=== PATIENT | female | born 1935 | race Caucasian/White ===

== ENCOUNTER 2018-01-12 09:39 | Outpatient (CLI) | payer MEDICARE ==
[2018-01-12] MEDS ORDERED: IOPAMIDOL-300 50 ML VIAL ONE (10:12)
[2018-01-12] MEDS ORDERED: IOPAMIDOL-300 100 ML VIAL ONE (10:12)
[2018-01-12] MEDS ORDERED: IOPAMIDOL-300 50 ML VIAL PO ONE (11:27)
[2018-01-12] MEDS ORDERED: IOPAMIDOL-300 100 ML VIAL IVP ONE (11:27)
--- NOTE | 2018-01-12 13:39 | CT Report ---
CT ABDOMEN AND PELVIS WITH CONTRAST: 01/12/2018 CLINICAL INDICATION: Abdominal pain. COMPARISON: 06/03/2015. TECHNIQUE: Axial CT images of the abdomen and pelvis were obtained with 100 mL Isovue 300 intravenously as well as oral contrast. FINDINGS: Limited evaluation of the lung bases demonstrates mild atelectasis. ABDOMEN: Allowing for the phase of contrast enhancement, the liver, left kidney and adrenal glands appear unremarkable. 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 The right kidney again demonstrates an extrarenal pelvis. No bowel dilatation, free gas, or free fluid is present. No abdominal adenopathy is present. PELVIS: The pelvic organs appear unremarkable. No pelvic adenopathy or free fluid is present. Osseous structures demonstrate degenerative changes. IMPRESSION: POSTOPERATIVE CHANGES. NO EVIDENT ETIOLOGY FOR PATIENT'S PAIN. NO EVIDENCE OF BOWEL OBSTRUCTION. CT DOSE REDUCTION STATEMENT In accordance with CT protocol optimization, one or more of the following dose reduction techniques were utilized for this exam: automated exposure control, adjustment of mA and/or KV based on patient size, or use of iterative reconstructive technique. TD: 01/12/2018 13:31
== END 2018-01-12 09:40 | disposition home or self-care (01) ==
LOC: DI 09:39
PROVIDERS: ATTEND Family Medicine
DX: R10.9 Unspecified abdominal pain (principal)
CPT/HCPCS: 74177; Q9967

== ENCOUNTER 2018-01-16 10:34 | Outpatient (CLI) | payer MEDICARE | END 2018-01-16 10:35 | disposition home or self-care (01) | LOC: LAB.F 10:34 | PROVIDERS: ATTEND Emergency Medicine | DX: I48.91 Unspecified atrial fibrillation (principal) | CPT/HCPCS: 85610 ==

== ENCOUNTER 2018-01-20 09:39 | Outpatient (CLI) | payer MEDICARE | END 2018-01-20 09:40 | disposition home or self-care (01) | LOC: LAB.F 09:39 | PROVIDERS: ATTEND Emergency Medicine | DX: I48.91 Unspecified atrial fibrillation (principal) | CPT/HCPCS: 85610 ==

== ENCOUNTER 2018-01-26 09:26 | Outpatient (CLI) | payer MEDICARE | END 2018-01-26 09:27 | disposition home or self-care (01) | LOC: LAB.F 09:26 | PROVIDERS: ATTEND Emergency Medicine | DX: I48.91 Unspecified atrial fibrillation (principal) | CPT/HCPCS: 85610 ==

== ENCOUNTER 2018-01-30 08:15 | Outpatient (CLI) | payer MEDICARE | END 2018-01-30 08:16 | disposition home or self-care (01) | LOC: LAB.F 08:15 | PROVIDERS: ATTEND Emergency Medicine | DX: I48.91 Unspecified atrial fibrillation (principal) | CPT/HCPCS: 85610 ==

== ENCOUNTER 2018-02-02 09:27 | Outpatient (CLI) | payer MEDICARE | END 2018-02-02 09:28 | disposition home or self-care (01) | LOC: LAB.F 09:27 | PROVIDERS: ATTEND Emergency Medicine | DX: I48.91 Unspecified atrial fibrillation (principal) | CPT/HCPCS: 85610 ==

== ENCOUNTER 2018-02-06 08:59 | Outpatient (CLI) | END 2018-02-06 09:00 | disposition home or self-care (01) ==

== ENCOUNTER 2018-02-09 07:57 | Day surgery (SDC) | payer MEDICARE ==
[~2018-02-09 07:57] MED LIST: BRIMONIDINE 0.2% OPHTH DROPS 5 ML ONE; BSS/LIDOCAINE/EPINEPHRINE 1 ML SYRINGE ONE; CYCLOPENTOLATE 1% OPHTH DROPS 2 ML ONE; EPINEPHrine 1 MG/ML AMP ONE; KETOROLAC 0.45% OPHTH DROPS ONE; PHENYLEPHRINE 2.5% OPHTH 2 ML DROPS ONE; PROPARACAINE 0.5% OPHTH DROPS 15 ML ONE; TIMOLOL 0.5% OPHTH DROPS ONE; TRIAMCIN/MOXIFLOX OPHTHALMIC 0.6 ML VIAL IO ONE; VANCOMYCIN OPHTHALMI 8MG/0.8ML 8 MG/0.8 ML SYRINGE IO ONE
[2018-02-09] MEDS: PROPARACAINE 0.5% OPHTH DROPS 15 ML LEFTEYE ONE ×2 (08:15→08:38)
[2018-02-09] MEDS: CYCLOPENTOLATE 1% OPHTH DROPS 2 ML LEFTEYE ONE (08:15)
[2018-02-09] MEDS: PHENYLEPHRINE 2.5% OPHTH 2 ML DROPS LEFTEYE ONE (08:15)
[2018-02-09] MEDS: KETOROLAC 0.45% OPHTH DROPS LEFTEYE ONE (08:15)
[2018-02-09] MEDS: LACTATED RINGERS 500 ML IV ONE (08:19)
[2018-02-09] MEDS: BRIMONIDINE 0.2% OPHTH DROPS 5 ML OPTH ONE (08:46)
[2018-02-09] MEDS: CHONDR SULF/HYALURONATE SYRINGE IO ONE (08:46)
[2018-02-09] MEDS: TIMOLOL 0.5% OPHTH DROPS OPTH ONE (08:46)
[2018-02-09] MEDS ORDERED: MIDAZOLAM 2 MG/2 ML VIAL IVP ONE (08:46)
[2018-02-09] MEDS: EPINEPHrine 1 MG/ML AMP IVP ONE (08:46)
[2018-02-09] MEDS: TRIAMCIN/MOXIFLOX/VANCO 1 ML VIAL IO ONE (08:47)
[2018-02-09] MEDS: BSS/LIDOCAINE/EPINEPHRINE 1 ML SYRINGE IO ONE ×2 (08:47)
[2018-02-09 08:58] VITALS: BP 140/80
--- NOTE | 2018-02-09 11:18 | OPERATIVE REPORT ---
DATE OF SERVICE: 02/09/2018 Physician: Shubham Rodriguez MD PREOPERATIVE DIAGNOSIS: Visually significant cataract, left eye. This was her 1st cataract surgery. POSTOPERATIVE DIAGNOSIS: Visually significant cataract, left eye. This was her 1st cataract surgery. NAME OF PROCEDURE: Phacoemulsification with posterior chamber intraocular lens implant, left eye. SURGEON: Shubham Rodriguez M.D. ANESTHESIA: Monitored anesthesia care. COMPLICATIONS: None. OPERATIVE INDICATIONS: This is an 82-year-old woman with progressive vision loss in the left eye due to 2+ nuclear sclerotic, 2+ cortical and vacuolar cataract. Best corrected visual acuity was 20/40 with glare to 20/160 in the left eye. Indications for surgery were overall decrease in vision, difficulty reading, difficulty driving in low light or at night, difficulty driving at night because of head lights from other vehicles and/or street lights, and difficulty with glare or bright lights in any situation. She was consented at length concerning risks and benefits of cataract surgery, after which she expressed a desire to proceed with surgery. OPERATIVE PROCEDURE: The patient was taken into OR #3 and placed under monitored anesthesia care. A surgical timeout was conducted confirming correct patient, correct procedure, and correct surgical site. She was given topical anesthesia and prepped and draped in usual sterile fashion. The eye was entered at the 6 and 3 o'clock positions. Intracameral Shugarcaine was injected into the anterior chamber, followed by Viscoat. A continuous-tear curvilinear capsulorrhexis was performed. The nucleus was hydrodissected and phacoemulsified. The cortex was evacuated using automated infusion and aspiration. Provisc was injected in the capsular bag, and a 19.0 diopter intraocular lens inserted in the bag. I and A was used to evacuate the viscoelastic materials. Approximately 0.7 mL of a mixture of triamcinolone, moxifloxacin, and vancomycin was injected subconjunctivally in the superior quadrant for infection and inflammation prophylaxis. The eye was inflated to physiologic pressure using balanced salt solution and found to be watertight. The patient was taken from the operating room in good condition and given postop instruction. TD: 02/09/2018 09:11
== END 2018-02-09 07:58 | disposition home or self-care (01) ==
LOC: SDS 07:57
PROVIDERS: ATTEND Ophthalmology
PROC: 08RK3JZ Replacement of Left Lens with Synthetic Substitute, Percutaneous Approach (ICD-10-PCS; principal; 2018-02-09 09:00)
DX: H25.812 Combined forms of age-related cataract, left eye (principal); I71.4 Abdominal aortic aneurysm, without rupture; I48.91 Unspecified atrial fibrillation; I73.9 Peripheral vascular disease, unspecified; Z85.07 Personal history of malignant neoplasm of pancreas; Z79.01 Long term (current) use of anticoagulants; Z86.73 Personal history of transient ischemic attack (TIA), and cerebral infarction without residual deficits
CPT/HCPCS: 66984; A9270; J3490; V2632

== ENCOUNTER 2018-02-13 09:13 | Outpatient (CLI) | payer MEDICARE | END 2018-02-13 09:14 | disposition home or self-care (01) | LOC: LAB.F 09:13 | PROVIDERS: ATTEND Emergency Medicine | DX: I48.91 Unspecified atrial fibrillation (principal) | CPT/HCPCS: 85610 ==

== ENCOUNTER 2018-02-20 09:27 | Outpatient (CLI) | payer MEDICARE | END 2018-02-20 09:28 | disposition home or self-care (01) | LOC: LAB.F 09:27 | PROVIDERS: ATTEND Emergency Medicine | DX: I48.91 Unspecified atrial fibrillation (principal) | CPT/HCPCS: 85610 ==

== ENCOUNTER 2018-02-27 11:35 | Outpatient (CLI) | payer MEDICARE | END 2018-02-27 11:36 | disposition home or self-care (01) | LOC: LAB.F 11:35 | PROVIDERS: ATTEND Emergency Medicine | DX: I48.91 Unspecified atrial fibrillation (principal) | CPT/HCPCS: 85610 ==

== ENCOUNTER 2018-03-13 09:43 | Outpatient (CLI) | payer MEDICARE | END 2018-03-13 09:44 | disposition home or self-care (01) | LOC: LAB.F 09:43 | PROVIDERS: ATTEND Emergency Medicine | DX: I48.91 Unspecified atrial fibrillation (principal) | CPT/HCPCS: 85610 ==

== ENCOUNTER 2018-03-27 09:57 | Outpatient (CLI) | payer MEDICARE | END 2018-03-27 09:58 | disposition home or self-care (01) | LOC: LAB.F 09:57 | PROVIDERS: ATTEND Emergency Medicine | DX: I48.91 Unspecified atrial fibrillation (principal) | CPT/HCPCS: 85610 ==

== ENCOUNTER 2018-04-03 10:11 | Outpatient (CLI) | payer MEDICARE | END 2018-04-03 10:12 | disposition home or self-care (01) | LOC: LAB.F 10:11 | PROVIDERS: ATTEND Emergency Medicine | DX: I48.91 Unspecified atrial fibrillation (principal) | CPT/HCPCS: 85610 ==

== ENCOUNTER 2018-04-19 11:30 | Outpatient (CLI) | payer MEDICARE | END 2018-04-19 11:31 | disposition home or self-care (01) | LOC: LAB.F 11:30 | PROVIDERS: ATTEND Emergency Medicine | DX: I48.91 Unspecified atrial fibrillation (principal) | CPT/HCPCS: 85610 ==

== ENCOUNTER 2018-04-24 14:14 | Outpatient (CLI) | payer MEDICARE | END 2018-04-24 14:15 | disposition home or self-care (01) | LOC: LAB.F 14:14 | PROVIDERS: ATTEND Emergency Medicine | DX: I48.91 Unspecified atrial fibrillation (principal) | CPT/HCPCS: 85610 ==

== ENCOUNTER 2018-05-03 11:47 | Outpatient (CLI) | payer MEDICARE | END 2018-05-03 11:48 | disposition home or self-care (01) | LOC: LAB.F 11:47 | PROVIDERS: ATTEND Emergency Medicine | DX: I48.91 Unspecified atrial fibrillation (principal) | CPT/HCPCS: 85610 ==

== ENCOUNTER 2018-05-11 10:51 | Outpatient (CLI) | payer MEDICARE | END 2018-05-11 10:52 | disposition home or self-care (01) | LOC: LAB.F 10:51 | PROVIDERS: ATTEND Emergency Medicine | DX: I48.91 Unspecified atrial fibrillation (principal) | CPT/HCPCS: 85610 ==

== ENCOUNTER 2018-05-18 10:35 | Outpatient (CLI) | payer MEDICARE | END 2018-05-18 10:36 | disposition home or self-care (01) | LOC: LAB.F 10:35 | PROVIDERS: ATTEND Emergency Medicine | DX: I48.91 Unspecified atrial fibrillation (principal) | CPT/HCPCS: 85610 ==

== ENCOUNTER 2018-06-01 14:38 | Outpatient (CLI) | payer MEDICARE | END 2018-06-01 14:39 | disposition home or self-care (01) | LOC: LAB.F 14:38 | PROVIDERS: ATTEND Emergency Medicine | DX: I48.91 Unspecified atrial fibrillation (principal) | CPT/HCPCS: 85610 ==

== ENCOUNTER 2018-06-15 09:34 | Outpatient (CLI) | payer MEDICARE | END 2018-06-15 09:35 | disposition home or self-care (01) | LOC: LAB.F 09:34 | PROVIDERS: ATTEND Emergency Medicine | DX: I48.91 Unspecified atrial fibrillation (principal) | CPT/HCPCS: 85610 ==

== ENCOUNTER 2018-07-10 08:00 | Outpatient (CLI) | payer MEDICARE | END 2018-07-10 08:01 | disposition home or self-care (01) | LOC: LAB.F 08:00 | PROVIDERS: ATTEND Emergency Medicine | DX: I48.91 Unspecified atrial fibrillation (principal) | CPT/HCPCS: 85610 ==

== ENCOUNTER 2018-07-13 07:56 | Day surgery (SDC) | payer MEDICARE ==
[~2018-07-13 07:56] MED LIST changes: -CYCLOPENTOLATE 1% OPHTH DROPS 2 ML ONE; -KETOROLAC 0.45% OPHTH DROPS ONE; -PHENYLEPHRINE 2.5% OPHTH 2 ML DROPS ONE; -PROPARACAINE 0.5% OPHTH DROPS 15 ML ONE
[2018-07-13] MEDS ORDERED: KETOROLAC 0.45% OPHTH DROPS ONE (08:23)
[2018-07-13] MEDS ORDERED: CYCLOPENTOLATE 1% OPHTH DROPS 2 ML ONE (08:24)
[2018-07-13] MEDS ORDERED: PHENYLEPHRINE 2.5% OPHTH 2 ML DROPS ONE (08:24)
[2018-07-13] MEDS ORDERED: PROPARACAINE 0.5% OPHTH DROPS 15 ML ONE (08:24)
--- NOTE | 2018-07-13 08:28 | ANESTHESIA ---
Pre-Anesthesia VS, & Labs - Diagnosis R senile combined cataract - Procedure R extraction cataract with IOL Vital Signs: Last Vital Signs Temp 36.6 C 07/13/18 08:25 Pulse 85 07/13/18 08:25 Resp 18 07/13/18 08:25 BP 137/87 H 07/13/18 08:25 Pulse Ox 96 07/13/18 08:25 Height 5 ft 3 in Body Mass Index 18.9 - NPO >8 hours - Is Patient ?: No Home Medications and Allergies Home Medications: Ambulatory Orders Atorvastatin Calcium 20 mg PO DAILY 07/12/18 Atenolol 50 mg PO BID 12/20/12 Lactobacillus Rhamnosus GG [Probiotic] 1 each PO DAILY 12/20/12 Lisinopril [Prinivil] 20 mg PO DAILY 12/20/12 Calcium Carb/Vitamin D3/Vit K1 [Calcium + D Soft Chewable Tab] 600 mg ORAL DAILY 04/29/14 Multivitamin [Multiple Vitamins] 1 each PO DAILY 02/08/18 Warfarin Sodium [Coumadin] 3 mg PO DAILY 02/08/18 Atorvastatin Calcium 20 mg PO DAILY 07/12/18 Allergies/Adverse Reactions: Allergies Allergy/AdvReac Type Severity Reaction Status Date / Time No Known Drug Allergies Allergy Unverified 02/08/18 13:42 Anes History & Medical History - Anesthetic History Anesthesia Complications: reports: No previous complications Family history of Anesthesia Complications: Denies Family history of Malignant Hyperthermia: Denies - Medical History Cardiovascular: reports: Atrial fibrillation, Arrhythmia Pulmonary: reports: None Gastrointestinal: reports: Other Urinary: reports: None Musculoskeletal: reports: Osteoarthritis Endocrine/Autoimmune: reports: None Skin: reports: None Smoking Status: Never smoker - Surgical History General: Cholecystectomy, Splenectomy Cardiothoracic: Pacemaker Exam General: Alert, Oriented x3, Cooperative Dental: WNL Mouth Openin Fingerbreadth Neck Mobility: Normal Mallampati classification: II Thyromental Distance: 4-6 cm Respiratory: Lungs clear, Normal breath sounds, No respiratory distress Cardiovascular: Regular rate Neurological: Normal speech Mental/Cognitive Status: Alert/Oriented X3 Cognitive Status: Within normal limits Plan Anesthesia Type: MAC Consent for Procedure(s) Verified and Reviewed: Yes Code Status: Attempt Resuscitation ASA classification: 3-Severe systemic disease Is this case an emergency?: No
[2018-07-13] MEDS ORDERED: PHENYLEPHRINE 2.5% OPHTH 2 ML DROPS RIGHTEYE ONE (08:30)
[2018-07-13] MEDS ORDERED: PROPARACAINE 0.5% OPHTH DROPS 15 ML RIGHTEYE ONE ×2 (08:30→09:21)
[2018-07-13] MEDS ORDERED: CYCLOPENTOLATE 1% OPHTH DROPS 2 ML RIGHTEYE ONE (08:30)
[2018-07-13] MEDS ORDERED: KETOROLAC 0.45% OPHTH DROPS RIGHTEYE ONE (08:30)
[2018-07-13] MEDS ORDERED: LACTATED RINGERS 500 ML IV ONE (08:43)
[2018-07-13] MEDS ORDERED: CHONDR SULF/HYALURONATE SYRINGE IO ONE (09:20)
[2018-07-13] MEDS ORDERED: PROPOFOL 200 MG/20 ML VIAL IVP ONE (09:20)
[2018-07-13] MEDS ORDERED: MIDAZOLAM 2 MG/2 ML VIAL IVP ONE (09:20)
[2018-07-13] MEDS ORDERED: BRIMONIDINE 0.2% OPHTH DROPS 5 ML OPTH ONE (09:20)
[2018-07-13] MEDS ORDERED: EPINEPHrine 1 MG/ML AMP IVP ONE (09:20)
[2018-07-13] MEDS ORDERED: BSS/LIDOCAINE/EPINEPHRINE 1 ML SYRINGE IO ONE ×2 (09:21)
[2018-07-13] MEDS ORDERED: TRIAMCIN/MOXIFLOX OPHTHALMIC 0.6 ML VIAL IO ONE ×2 (09:21)
[2018-07-13] MEDS ORDERED: TIMOLOL 0.5% OPHTH DROPS OPTH ONE (09:21)
[2018-07-13 10:35] VITALS: BP 123/87
--- NOTE | 2018-07-13 10:46 | OPERATIVE REPORT ---
DATE OF SERVICE: 07/13/2018 Physician: Shubham Rodriguez MD PREOPERATIVE DIAGNOSIS: Visually significant cataract, right eye. Cataract surgery was performed on the left eye on 02/09/2018. POSTOPERATIVE DIAGNOSIS: Visually significant cataract, right eye. PROCEDURE: Phacoemulsification with posterior chamber intraocular lens implant, right eye. SURGEON: Dr. Shubham Rodriguez. ANESTHESIA: Monitored anesthesia care. COMPLICATIONS: None. OPERATIVE INDICATIONS: This is an 82-year-old woman with progressive vision loss in the right eye du e to 2-3+ nuclear sclerotic, 1+ cortical and trace posterior subcapsular cataract. Best corrected vi sual acuity was 20/40 with glare to 20/80 in the right eye. Indications for surgery are overall decrease in vision, difficulty seeing words on a computer screen, difficulty reading, difficulty seeing words, closed captions or game scores on TV, difficulty seeing street signs, difficulty driving in low light or at night, difficulty driving at night because of he adlights from other vehicles and/or street lights, and difficulty with glare or bright lights in any situation. She was consented at length concerning the risks and benefits of cataract surgery, after which she expressed a desire to proceed with surgery. OPERATIVE PROCEDURE: Patient was taken into OR #3 and placed under monitored anesthesia care. A lotus gical timeout was conducted confirming correct patient, correct procedure, and correct surgical site. She was given topical anesthesia, then prepped and draped in the usual sterile fashion. The eye was entered at the 12 and 9 o'clock positions. Intracameral Shugarcaine was injected into th e anterior chamber, followed by Viscoat. A continuous-tear curvilinear capsulorrhexis was performed. The nucleus was hydrodissected and phacoemulsified. The cortex was evacuated using automated infus ion and aspiration. Provisc was injected in the capsular bag, and a 21.0 diopter intraocular lens in serted in the bag. Approximately 0.8 mL of a mixture of triamcinolone, moxifloxacin, and vancomycin was injected subconjunctivally in the superior quadrant for infection and inflammation prophylaxis. I and A was used to evacuate the viscoelastic materials. The eye was inflated to physiologic pressur e using a balanced salt solution and found to be watertight. Patient was taken from the operating ro om in good condition and given postop instructions. TD: 07/13/2018 09:48
== END 2018-07-13 07:57 | disposition home or self-care (01) ==
LOC: SDS 07:56
PROVIDERS: ATTEND Ophthalmology
PROC: 08RJ3JZ Replacement of Right Lens with Synthetic Substitute, Percutaneous Approach (ICD-10-PCS; principal; 2018-07-13 09:00)
DX: H25.811 Combined forms of age-related cataract, right eye (principal); I10 Essential (primary) hypertension; I48.91 Unspecified atrial fibrillation; Z95.0 Presence of cardiac pacemaker; Z79.01 Long term (current) use of anticoagulants
CPT/HCPCS: 66984; A9270; J3490; V2632

== ENCOUNTER 2018-08-09 14:53 | Outpatient (CLI) | payer MEDICARE | END 2018-08-09 14:54 | disposition home or self-care (01) | LOC: LAB.F 14:53 | PROVIDERS: ATTEND Emergency Medicine | DX: I48.91 Unspecified atrial fibrillation (principal) | CPT/HCPCS: 85610 ==

== ENCOUNTER 2018-08-16 10:36 | Outpatient (CLI) | payer MEDICARE | END 2018-08-16 10:37 | disposition home or self-care (01) | LOC: LAB.F 10:36 | PROVIDERS: ATTEND Emergency Medicine | DX: I48.91 Unspecified atrial fibrillation (principal) | CPT/HCPCS: 85610 ==

== ENCOUNTER 2018-08-23 13:35 | Outpatient (CLI) | payer MEDICARE | END 2018-08-23 13:36 | disposition home or self-care (01) | LOC: LAB.F 13:35 | PROVIDERS: ATTEND Emergency Medicine | DX: I48.91 Unspecified atrial fibrillation (principal) | CPT/HCPCS: 85610 ==

== ENCOUNTER 2018-08-30 13:51 | Outpatient (CLI) | payer MEDICARE | END 2018-08-30 13:52 | disposition home or self-care (01) | LOC: LAB.F 13:51 | PROVIDERS: ATTEND Emergency Medicine | DX: I48.91 Unspecified atrial fibrillation (principal) | CPT/HCPCS: 85610 ==

== ENCOUNTER 2018-09-15 09:24 | Outpatient (CLI) | payer MEDICARE | END 2018-09-15 09:25 | disposition home or self-care (01) | LOC: LAB.F 09:24 | PROVIDERS: ATTEND Emergency Medicine | DX: I48.91 Unspecified atrial fibrillation (principal) | CPT/HCPCS: 85610 ==

== ENCOUNTER 2018-09-26 11:34 | Outpatient (CLI) | payer MEDICARE | END 2018-09-26 11:35 | disposition home or self-care (01) | LOC: LAB.F 11:34 | PROVIDERS: ATTEND Emergency Medicine | DX: I48.91 Unspecified atrial fibrillation (principal) | CPT/HCPCS: 85610 ==

== ENCOUNTER 2018-10-04 14:28 | Outpatient (CLI) | payer MEDICARE | END 2018-10-04 14:29 | disposition home or self-care (01) | LOC: LAB.F 14:28 | PROVIDERS: ATTEND Emergency Medicine | DX: I48.91 Unspecified atrial fibrillation (principal) | CPT/HCPCS: 85610 ==

== ENCOUNTER 2018-10-18 12:52 | Outpatient (CLI) | payer MEDICARE | END 2018-10-18 12:53 | disposition home or self-care (01) | LOC: LAB.F 12:52 | PROVIDERS: ATTEND Emergency Medicine | DX: I48.91 Unspecified atrial fibrillation (principal) | CPT/HCPCS: 85610 ==

== ENCOUNTER 2018-11-03 11:07 | Outpatient (CLI) | payer MEDICARE | END 2018-11-03 11:08 | disposition home or self-care (01) | LOC: LAB.F 11:07 | PROVIDERS: ATTEND Emergency Medicine | DX: I48.91 Unspecified atrial fibrillation (principal) | CPT/HCPCS: 85610 ==

== ENCOUNTER 2018-11-13 14:17 | Outpatient (CLI) | payer MEDICARE | END 2018-11-13 14:18 | disposition home or self-care (01) | LOC: LAB.F 14:17 | PROVIDERS: ATTEND Emergency Medicine | DX: I48.91 Unspecified atrial fibrillation (principal) | CPT/HCPCS: 85610 ==

== ENCOUNTER 2018-11-28 13:31 | Outpatient (CLI) | payer MEDICARE | END 2018-11-28 13:32 | disposition home or self-care (01) | LOC: LAB.F 13:31 | PROVIDERS: ATTEND Emergency Medicine | DX: I48.91 Unspecified atrial fibrillation (principal) | CPT/HCPCS: 85610 ==

== ENCOUNTER 2018-12-19 14:36 | Outpatient (CLI) | payer MEDICARE | END 2018-12-19 14:37 | disposition home or self-care (01) | LOC: LAB.F 14:36 | PROVIDERS: ATTEND Emergency Medicine | DX: I48.91 Unspecified atrial fibrillation (principal) | CPT/HCPCS: 85610 ==

== ENCOUNTER 2019-01-02 11:18 | Outpatient (CLI) | payer MEDICARE | END 2019-01-02 11:19 | disposition home or self-care (01) | LOC: LAB.F 11:18 | PROVIDERS: ATTEND Emergency Medicine | DX: I48.91 Unspecified atrial fibrillation (principal) | CPT/HCPCS: 85610 ==

== ENCOUNTER 2019-01-09 15:18 | Outpatient (CLI) | payer MEDICARE ==
[2019-01-09 18:00] LABS: BASOPHILS # (AUTO) 0.1 10^3/uL (0.0-0.1); BASOPHILS % (AUTO) 1.2 %; EOSINOPHILS # (AUTO) 0.1 10^3/uL (0.0-0.7); EOSINOPHILS % (AUTO) 1.6 %; LYMPHOCYTES # (AUTO) 1.1 10^3/uL (1.5-3.5); LYMPHOCYTES % (AUTO) 15.3 %; MEAN CORPUSCULAR HGB CONC 32.5 g/dL (32.0-36.0); MEAN CORPUSCULAR VOLUME 92.3 fL (81.0-99.0); MEAN PLATELET VOLUME 8.6 fL (7.9-10.8); MONOCYTES # (AUTO) 0.8 10^3/uL (0.0-1.0); MONOCYTES % (AUTO) 11.7 %; NEUTROPHILS # (AUTO) 4.9 10^3/uL (1.5-6.6); NEUTROPHILS % (AUTO) 70.2 %; PLT - PLATELET COUNT 202 10^3/uL (130-450); RED BLOOD COUNT 4.68 10^6/uL (4.20-5.40)
[2019-01-09 18:08] LABS: INR 2.4 (0.8-1.2); PT - PROTHROMBIN TIME 27.4 secs (9.9-12.6)
[2019-01-09 18:13] LABS: CALCIUM 9.4 mg/dL (8.5-10.3); CREATININE 0.8 mg/dL (0.4-1.0)
== END 2019-01-09 15:19 | disposition home or self-care (01) ==
LOC: LAB.F 15:18
PROVIDERS: ATTEND Specialist
DX: I48.91 Unspecified atrial fibrillation (principal); I35.0 Nonrheumatic aortic (valve) stenosis; R06.02 Shortness of breath
CPT/HCPCS: 36415; 80048; 85025; 85610

== ENCOUNTER 2019-01-23 13:29 | Outpatient (CLI) | payer MEDICARE | END 2019-01-23 13:30 | disposition home or self-care (01) | LOC: LAB.F 13:29 | PROVIDERS: ATTEND Emergency Medicine | DX: I48.91 Unspecified atrial fibrillation (principal) | CPT/HCPCS: 85610 ==

== ENCOUNTER 2019-01-30 11:29 | Outpatient (CLI) | payer MEDICARE | END 2019-01-30 11:30 | disposition home or self-care (01) | LOC: LAB.F 11:29 | PROVIDERS: ATTEND Emergency Medicine | DX: I48.91 Unspecified atrial fibrillation (principal) | CPT/HCPCS: 85610 ==

== ENCOUNTER 2019-02-06 09:14 | Outpatient (CLI) | payer MEDICARE | END 2019-02-06 09:15 | disposition home or self-care (01) | LOC: LAB.F 09:14 | PROVIDERS: ATTEND Emergency Medicine | DX: I48.91 Unspecified atrial fibrillation (principal) | CPT/HCPCS: 85610 ==

== ENCOUNTER 2019-02-19 11:05 | Outpatient (CLI) | payer MEDICARE | END 2019-02-19 11:06 | disposition home or self-care (01) | LOC: LAB.S 11:05 | PROVIDERS: ATTEND Emergency Medicine | DX: I48.91 Unspecified atrial fibrillation (principal) | CPT/HCPCS: 85610 ==

== ENCOUNTER 2019-02-26 09:23 | Outpatient (CLI) | payer MEDICARE | END 2019-02-26 09:24 | disposition home or self-care (01) | LOC: LAB.S 09:23 | PROVIDERS: ATTEND Emergency Medicine | DX: I48.91 Unspecified atrial fibrillation (principal) | CPT/HCPCS: 85610 ==

== ENCOUNTER 2019-03-02 10:03 | Outpatient (CLI) | payer MEDICARE | END 2019-03-02 10:04 | disposition home or self-care (01) | LOC: LAB.S 10:03 | PROVIDERS: ATTEND Emergency Medicine | DX: I48.91 Unspecified atrial fibrillation (principal) | CPT/HCPCS: 85610 ==

== ENCOUNTER 2019-03-20 14:04 | Outpatient (CLI) | payer MEDICARE | END 2019-03-20 14:05 | disposition home or self-care (01) | LOC: LAB.S 14:04 | PROVIDERS: ATTEND Emergency Medicine | DX: I48.91 Unspecified atrial fibrillation (principal) | CPT/HCPCS: 85610 ==

== ENCOUNTER 2019-04-10 14:42 | Outpatient (CLI) | payer MEDICARE | END 2019-04-10 14:43 | disposition home or self-care (01) | LOC: LAB.S 14:42 | PROVIDERS: ATTEND Emergency Medicine | DX: I48.91 Unspecified atrial fibrillation (principal) | CPT/HCPCS: 85610 ==

== ENCOUNTER 2019-04-24 10:39 | Outpatient (CLI) | payer MEDICARE | END 2019-04-24 10:40 | disposition home or self-care (01) | LOC: LAB.S 10:39 | PROVIDERS: ATTEND Emergency Medicine | DX: I48.91 Unspecified atrial fibrillation (principal) | CPT/HCPCS: 85610 ==

== ENCOUNTER 2019-05-15 13:46 | Outpatient (CLI) | payer MEDICARE | END 2019-05-15 13:47 | disposition home or self-care (01) | LOC: LAB.S 13:46 | PROVIDERS: ATTEND Emergency Medicine | DX: I48.91 Unspecified atrial fibrillation (principal) | CPT/HCPCS: 85610 ==

== ENCOUNTER 2019-06-12 11:11 | Outpatient (CLI) | payer MEDICARE | END 2019-06-12 11:12 | disposition home or self-care (01) | LOC: LAB.S 11:11 | PROVIDERS: ATTEND Emergency Medicine | DX: I48.91 Unspecified atrial fibrillation (principal) | CPT/HCPCS: 85610 ==

== ENCOUNTER 2019-07-10 11:31 | Outpatient (CLI) | payer MEDICARE | END 2019-07-10 11:32 | disposition home or self-care (01) | LOC: LAB.S 11:31 | PROVIDERS: ATTEND Emergency Medicine | DX: I48.91 Unspecified atrial fibrillation (principal) | CPT/HCPCS: 85610 ==

== ENCOUNTER 2019-08-06 07:41 | Outpatient (CLI) | payer MEDICARE | END 2019-08-06 07:42 | disposition home or self-care (01) | LOC: LAB.S 07:41 | PROVIDERS: ATTEND Emergency Medicine | DX: I48.91 Unspecified atrial fibrillation (principal) | CPT/HCPCS: 85610 ==

== ENCOUNTER 2019-09-04 10:35 | Outpatient (CLI) | payer MEDICARE | END 2019-09-04 10:36 | disposition home or self-care (01) | LOC: LAB.S 10:35 | PROVIDERS: ATTEND Emergency Medicine | DX: I48.91 Unspecified atrial fibrillation (principal) | CPT/HCPCS: 85610 ==

== ENCOUNTER 2019-10-02 09:28 | Outpatient (CLI) | payer MEDICARE | END 2019-10-02 09:29 | disposition home or self-care (01) | LOC: LAB.S 09:28 | PROVIDERS: ATTEND Emergency Medicine | DX: I48.91 Unspecified atrial fibrillation (principal) | CPT/HCPCS: 85610 ==

== ENCOUNTER 2019-11-05 09:44 | Outpatient (CLI) | payer MEDICARE | END 2019-11-05 09:45 | disposition home or self-care (01) | LOC: LAB.S 09:44 | PROVIDERS: ATTEND Emergency Medicine | DX: I48.91 Unspecified atrial fibrillation (principal) | CPT/HCPCS: 85610 ==

== ENCOUNTER 2019-12-03 09:45 | Outpatient (CLI) | payer MEDICARE ==
[2019-12-03 10:33] LABS: PT - PROTHROMBIN TIME 76.6 secs (9.9-12.6)
[2019-12-03 10:40] LABS: INR 7.5 (0.8-1.2)
== END 2019-12-03 09:46 | disposition home or self-care (01) ==
LOC: LAB 09:45
PROVIDERS: ATTEND Emergency Medicine
DX: I48.91 Unspecified atrial fibrillation (principal)
CPT/HCPCS: 36415; 85610

== ENCOUNTER 2019-12-05 10:31 | Outpatient (CLI) | payer MEDICARE | END 2019-12-05 10:32 | disposition home or self-care (01) | LOC: LAB 10:31 | PROVIDERS: ATTEND Emergency Medicine | DX: I48.91 Unspecified atrial fibrillation (principal) | CPT/HCPCS: 85610 ==

== ENCOUNTER 2019-12-18 10:50 | Outpatient (CLI) | payer MEDICARE | END 2019-12-18 10:51 | disposition home or self-care (01) | LOC: LAB 10:50 | PROVIDERS: ATTEND Emergency Medicine | DX: I48.91 Unspecified atrial fibrillation (principal) | CPT/HCPCS: 85610 ==

== ENCOUNTER 2019-12-31 08:49 | Outpatient (CLI) | payer MEDICARE | END 2019-12-31 08:50 | disposition home or self-care (01) | LOC: LAB 08:49 | PROVIDERS: ATTEND Emergency Medicine | DX: I48.91 Unspecified atrial fibrillation (principal) | CPT/HCPCS: 85610 ==

== ENCOUNTER 2020-01-15 09:26 | Outpatient (CLI) | payer MEDICARE | END 2020-01-15 09:27 | disposition home or self-care (01) | LOC: LAB 09:26 | PROVIDERS: ATTEND Emergency Medicine | DX: I48.91 Unspecified atrial fibrillation (principal) | CPT/HCPCS: 85610 ==

== ENCOUNTER 2020-02-04 12:28 | Outpatient (CLI) | payer MEDICARE | END 2020-02-04 12:29 | disposition home or self-care (01) | LOC: LAB.S 12:28 | PROVIDERS: ATTEND Emergency Medicine | DX: I48.91 Unspecified atrial fibrillation (principal) | CPT/HCPCS: 85610 ==

== ENCOUNTER 2020-02-12 11:13 | Outpatient (CLI) | payer MEDICARE | END 2020-02-12 11:14 | disposition home or self-care (01) | LOC: LAB.S 11:13 | PROVIDERS: ATTEND Emergency Medicine | DX: I48.91 Unspecified atrial fibrillation (principal) | CPT/HCPCS: 85610 ==

== ENCOUNTER 2020-03-31 10:31 | Outpatient (CLI) | payer MEDICARE | END 2020-03-31 10:32 | disposition home or self-care (01) | LOC: LAB.S 10:31 | PROVIDERS: ATTEND Family Medicine | DX: I48.91 Unspecified atrial fibrillation (principal) | CPT/HCPCS: 85610 ==

== ENCOUNTER 2020-04-16 13:37 | Outpatient (CLI) | payer MEDICARE | END 2020-04-16 13:38 | disposition home or self-care (01) | LOC: LAB.S 13:37 | PROVIDERS: ATTEND Emergency Medicine | DX: I48.91 Unspecified atrial fibrillation (principal) | CPT/HCPCS: 85610 ==

== ENCOUNTER 2020-04-28 12:41 | Outpatient (CLI) | payer MEDICARE | END 2020-04-28 12:42 | disposition critical access hospital (66) | LOC: EMS 12:41 | PROVIDERS: ATTEND Surgery | DX: R53.1 Weakness (principal); R42 Dizziness and giddiness; R03.1 Nonspecific low blood-pressure reading | CPT/HCPCS: A0425; A0427 ==

== ENCOUNTER 2020-04-28 13:05 | Emergency (ER) | payer MEDICARE ==
--- NOTE | 2020-04-28 13:22 | ED Physician Documentation ---
PD HPI SYNCOPE - Stated complaint Stated Complaint: WEAKNESS - Chief complaint Chief Complaint: General - History obtained from History obtained from: Patient, EMS - History of Present Illness Witnessed: Witnessed (She was doing laundry and had been standing up for a bit of time and started feeling lightheaded. Her states she got pale looking. There is no chest pain or headache. She sat down and started feeling better. EMS arrived and noted her blood pressure to be initially low. HR 80s.) Timing - onset: How many hours ago (1) Duration: Minutes Preceding symptoms: Light headed, Generalized weakness (Feeling general weakness over the last several days with brief episodes of lightheadedness. Today was the most symptomatic. Otherwise feeling well without any chest pain or dyspnea or headache). No: Headache, Chest pain, Abdominal pain, Nausea / vomiting Associated symptoms: No: Headache, Chest pain, Dyspnea, Nausea / vomiting, Abdominal pain Contributing factors: Recent med change (Her losartan was increased from a half a tablet to a whole tablet several weeks ago. She and her do not know why it was increased as it was a virtual visit without a blood pressure check and they have not been taking her blood pressure at home regularly.) Injury occurred: No: Fell Similar symptoms before: Has not had sx before Recently seen: Clinic (teleconference with PCP office about 3-4 weeks ago and had Losartan increased from 1/2 to 1 tab daily. Had not had BP checked recently.) Review of Systems Constitutional: denies: Fever, Chills Nose: denies: Rhinorrhea / runny nose, Congestion Throat: denies: Sore throat Cardiac: denies: Chest pain / pressure, Palpitations Respiratory: denies: Dyspnea, Cough GI: denies: Abdominal Pain, Nausea, Vomiting, Diarrhea, Bloody / black stool : denies: Dysuria, Frequency Skin: denies: Rash, Lesions Musculoskeletal: denies: Back pain, Extremity swelling Neurologic: reports: Generalized weakness (with some lightheaded at times for the past week.). denies: Focal weakness, Numbness, Altered mental status, Headache, Head injury Immunocompromised: denies: Immunocompromised PD PAST MEDICAL HISTORY - Past Medical History Past Medical History: Yes Cardiovascular: Atrial fibrillation, Arrhythmia Respiratory: None Neuro: None Endocrine/Autoimmune: None - Past Surgical History Past Surgical History: Yes General: Cholecystectomy, Splenectomy Cardiovascular: Pacemaker - Present Medications Home Medications: Ambulatory Orders Medication Instructions Recorded Confirmed Lactobacillus Rhamnosus GG 1 each PO DAILY 12/20/12 07/12/18 [Probiotic] atenoloL [Atenolol] 50 mg PO BID 12/20/12 07/12/18 lisinopriL [Prinivil] 20 mg PO DAILY 12/20/12 07/12/18 Calcium Carb/Vitamin D3/Vit K1 600 mg ORAL DAILY 04/29/14 07/12/18 [Calcium + D Soft Chewable Tab] Multivitamin [Multiple Vitamins] 1 each PO DAILY 02/08/18 07/12/18 Warfarin Sodium [Coumadin] 3 mg PO DAILY 02/08/18 07/12/18 Atorvastatin Calcium 20 mg PO DAILY 07/12/18 07/12/18 - Allergies Allergies/Adverse Reactions: Allergies Allergy/AdvReac Type Severity Reaction Status Date / Time No Known Drug Allergies Allergy Verified 04/28/20 13:07 - Social History Does the pt smoke?: No Smoking Status: Never smoker Does the pt drink ETOH?: No Does the pt have substance abuse?: No - Immunizations Immunizations are current?: Yes - POLST Patient has POLST: No PD ED PE NORMAL - Vitals Vital signs reviewed: Yes (initial BP low) - General General: Alert and oriented X 3, No acute distress, Well developed/nourished - HEENT HEENT: Moist mucous membranes, Pharynx benign - Neck Neck: Supple, no meningeal sign, No adenopathy - Cardiac Cardiac: No murmur. No: RRR (irregular but rate controlled. ) - Respiratory Respiratory: No respiratory distress, Clear bilaterally - Abdomen Abdomen: Soft, Non tender Results - Vitals Vitals: Vital Signs - 24 hr 04/28/20 04/28/20 04/28/20 13:07 13:11 15:00 Temperature 36.8 C 36.8 C Heart Rate 81 90 78 Heart Rate [ Sitting] Heart Rate [ Standing] Heart Rate [ Supine] Respiratory 18 16 15 Rate Blood Pressure 104/68 106/53 L 112/62 Blood Pressure [Sitting] Blood Pressure [Standing] Blood Pressure [Supine] O2 Saturation 97 100 100 04/28/20 04/28/20 04/28/20 15:11 15:55 16:12 Temperature Heart Rate 88 89 Heart Rate [ 96 Sitting] Heart Rate [ 85 Standing] Heart Rate [ 103 H Supine] Respiratory 16 16 Rate Blood Pressure 118/88 H 112/68 Blood Pressure 114/85 H [Sitting] Blood Pressure 118/88 H [Standing] Blood Pressure 112/67 [Supine] O2 Saturation 100 100 Oxygen O2 Source Room air - EKG (time done) 13:12 Rate: Rate (enter#) (85) Rhythm: Atrial flutter, Atrial fibrillation, Paced (partly) Intervals: LBBB QRS: Normal Ischemia: Normal ST segments. No: ST elevation c/w ischemia, ST depression - Labs Labs: Laboratory Tests 04/28/20 04/28/20 04/28/20 13:20 13:20 13:20 WBC 7.9 RBC 3.91 L Hgb 12.4 Hct 36.1 L MCV 92.3 MCH 31.7 H MCHC 34.3 RDW 16.4 H Plt Count 174 MPV 10.5 Neut # (Auto) 5.7 Lymph # (Auto) 0.9 L [place] # (Auto) 1.0 Eos # (Auto) 0.1 Baso # (Auto) 0.1 Absolute Nucleated RBC 0.00 Nucleated RBC % 0.0 PT 16.5 H INR 1.5 H Sodium 134 L Potassium 4.0 Chloride 96 L Carbon Dioxide 30 Anion Gap 8.0 BUN 21 H Creatinine 0.9 Estimated GFR (MDRD) 60 L Glucose 105 H Calcium 8.7 Magnesium Total Bilirubin 0.8 AST 29 ALT 21 Alkaline Phosphatase 56 Troponin I High Sens B-Natriuretic Peptide Total Protein 5.6 L Albumin 3.2 Globulin 2.4 Albumin/Globulin Ratio 1.3 Lipase 19 L Urine Color Urine Clarity Urine pH Ur Specific [place] Urine Protein Urine Glucose (UA) Urine Ketones Urine Occult Blood Urine Nitrite Urine Bilirubin Urine Urobilinogen Ur Leukocyte Esterase Ur Microscopic Review Urine Culture Comments 04/28/20 04/28/20 04/28/20 13:20 13:20 13:20 WBC RBC Hgb Hct MCV MCH MCHC RDW Plt Count MPV Neut # (Auto) Lymph # (Auto) [place] # (Auto) Eos # (Auto) Baso # (Auto) Absolute Nucleated RBC Nucleated RBC % PT INR Sodium Potassium Chloride Carbon Dioxide Anion Gap BUN Creatinine Estimated GFR (MDRD) Glucose Calcium Magnesium 2.0 Total Bilirubin AST ALT Alkaline Phosphatase Troponin I High Sens 16.2 H* B-Natriuretic Peptide 282 H Total Protein Albumin Globulin Albumin/Globulin Ratio Lipase Urine Color Urine Clarity Urine pH Ur Specific [place] Urine Protein Urine Glucose (UA) Urine Ketones Urine Occult Blood Urine Nitrite Urine Bilirubin Urine Urobilinogen Ur Leukocyte Esterase Ur Microscopic Review Urine Culture Comments 04/28/20 14:11 WBC RBC Hgb Hct MCV MCH MCHC RDW Plt Count MPV Neut # (Auto) Lymph # (Auto) [place] # (Auto) Eos # (Auto) Baso # (Auto) Absolute Nucleated RBC Nucleated RBC % PT INR Sodium Potassium Chloride Carbon Dioxide Anion Gap BUN Creatinine Estimated GFR (MDRD) Glucose Calcium Magnesium Total Bilirubin AST ALT Alkaline Phosphatase Troponin I High Sens B-Natriuretic Peptide Total Protein Albumin Globulin Albumin/Globulin Ratio Lipase Urine Color YELLOW Urine Clarity CLEAR Urine pH 6.5 Ur Specific [place] 1.010 Urine Protein NEGATIVE Urine Glucose (UA) NEGATIVE Urine Ketones NEGATIVE Urine Occult Blood NEGATIVE Urine Nitrite NEGATIVE Urine Bilirubin NEGATIVE Urine Urobilinogen 0.2 (NORMAL) Ur Leukocyte Esterase NEGATIVE Ur Microscopic Review NOT INDICATED Urine Culture Comments NOT INDICATED PD MEDICAL DECISION MAKING - ED course Complexity details: reviewed results (normal labs and monitor showing persistent rate controlled atrial fib; symptoms related to low BP and is improved with some fluid.), re-evaluated patient (feeling better with IV fluids and postrural vitals good. ), considered differential (low BP and has pre-syncopal symptoms and weakness. Rate controlled atrial fib. Had had BP med increased few weeks ago without BP having been taken.), d/w patient Departure - Departure Disposition: 01 Home, Self Care Clinical Impression: Hypotension Qualifiers: Hypotension type: orthostatic hypotension Qualified Code(s): I95.1 - Orthostatic hypotension Atrial fibrillation Qualifiers: Atrial fibrillation type: unspecified chronic Qualified Code(s): I48.20 - Chronic atrial fibrillation, unspecified Condition: Stable Record reviewed to determine appropriate education?: Yes Comments: Your blood pressure was low causing your lightheaded symptoms. Your basic blood tests appear normal here. Your INR was slightly low at 1.5. I would suggest taking an extra half dose of your Coumadin this evening and otherwise continue the normal dosing. Hold your losartan blood pressure medicine for the remainder of this week. Check your blood pressure once or twice daily through the week. Contact your primary care at the end of the week to discuss whether to resume the losartan add a half dose or just remain off of it. Return to the ER if any further symptoms develop to suggest other causes of your symptoms such as fever, trouble breathing, bloody stools, pains etc. Discharge Date/Time: 04/28/20 16:15
[2020-04-28 13:26] LABS: BASOPHILS # (AUTO) 0.1 10^3/uL (0.0-0.1); BASOPHILS % (AUTO) 0.6 %; EOSINOPHILS # (AUTO) 0.1 10^3/uL (0.0-0.7); EOSINOPHILS % (AUTO) 1.6 %; HGB - HEMOGLOBIN 12.4 g/dL (12.0-16.0); LYMPHOCYTES # (AUTO) 0.9 10^3/uL (1.5-3.5); LYMPHOCYTES % (AUTO) 11.5 %; MEAN CORPUSCULAR HEMOGLOBIN 31.7 pg (27.0-31.0); MEAN CORPUSCULAR HGB CONC 34.3 g/dL (32.0-36.0); MEAN CORPUSCULAR VOLUME 92.3 fL (81.0-99.0); MEAN PLATELET VOLUME 10.5 fL (7.9-10.8); MONOCYTES % (AUTO) 13.1 %; NEUTROPHILS # (AUTO) 5.7 10^3/uL (1.5-6.6); NEUTROPHILS % (AUTO) 72.6 %; PLT - PLATELET COUNT 174 10^3/uL (130-450); RED BLOOD COUNT 3.91 10^6/uL (4.20-5.40); RED CELL DISTRIBUTION WIDTH 16.4 % (12.0-15.0); WHITE BLOOD COUNT 7.9 x10^3/uL (4.8-10.8)
[2020-04-28 13:34] LABS: INR 1.5 (0.8-1.2); PT - PROTHROMBIN TIME 16.5 secs (9.9-12.6)
[2020-04-28 13:42] LABS: ALBUMIN 3.2 g/dL (3.2-5.5); ALBUMIN/GLOBULIN RATIO 1.3 (1.0-2.2); BILIRUBIN,TOTAL 0.8 mg/dL (0.2-1.0); CALCIUM 8.7 mg/dL (8.5-10.3); CREATININE 0.9 mg/dL (0.4-1.0); TOTAL PROTEIN 5.6 g/dL (6.7-8.2)
[2020-04-28] MEDS ORDERED: SODIUM CHLORIDE 0.9% 1,000 ML IV STA (13:52)
[2020-04-28 14:18] LABS: BILIRUBIN,URINE NEGATIVE (NEGATIVE); GLUCOSE, URINE (UA) NEGATIVE (NEGATIVE); KETONES,URINE (UA) NEGATIVE (NEGATIVE); LEUKOCYTE ESTERASE, URINE NEGATIVE (NEGATIVE); NITRITE,URINE NEGATIVE (NEGATIVE); OCCULT BLOOD,URINE NEGATIVE (NEGATIVE); PH,URINE 6.5 PH (5.0-7.5); PROTEIN,URINE NEGATIVE (NEGATIVE); UROBILINOGEN,URINE 0.2 (NORMAL) E.U./dL (NORMAL)
[2020-04-28 14:22] LABS: CLARITY,URINE CLEAR (CLEAR)
[2020-04-28 16:15] VITALS: BP 112/68
== END 2020-04-28 16:15 | disposition home or self-care (01) ==
LOC: EDUNIT# → ED 13:05
DX: I95.1 Orthostatic hypotension (principal); I48.20 Chronic atrial fibrillation, unspecified; I48.92 Unspecified atrial flutter; I44.7 Left bundle-branch block, unspecified; Z95.0 Presence of cardiac pacemaker; Z79.01 Long term (current) use of anticoagulants
CPT/HCPCS: 36415; 80053; 81001; 81003; 83690; 83735; 83880; 84484; 85025; 85610; 87086; 93005; 96360; 99284

== ENCOUNTER 2020-05-03 10:39 | Outpatient (CLI) | payer MEDICARE | END 2020-05-03 10:40 | disposition home or self-care (01) | LOC: LAB.S 10:39 | PROVIDERS: ATTEND Emergency Medicine | DX: I48.91 Unspecified atrial fibrillation (principal) | CPT/HCPCS: 85610 ==

== ENCOUNTER 2020-05-27 10:59 | Outpatient (CLI) | payer MEDICARE | END 2020-05-27 11:00 | disposition home or self-care (01) | LOC: LAB.S 10:59 | PROVIDERS: ATTEND Emergency Medicine | DX: I48.91 Unspecified atrial fibrillation (principal) | CPT/HCPCS: 85610 ==

== ENCOUNTER 2020-06-07 09:34 | Outpatient (CLI) | payer MEDICARE | END 2020-06-07 09:35 | disposition home or self-care (01) | LOC: LAB.S 09:34 | PROVIDERS: ATTEND Emergency Medicine | DX: I48.91 Unspecified atrial fibrillation (principal) | CPT/HCPCS: 85610 ==

== ENCOUNTER 2020-06-28 12:28 | Outpatient (CLI) | payer MEDICARE | END 2020-06-28 12:29 | disposition home or self-care (01) | LOC: LAB.S 12:28 | PROVIDERS: ATTEND Emergency Medicine | DX: I48.91 Unspecified atrial fibrillation (principal) | CPT/HCPCS: 85610 ==

== ENCOUNTER 2020-07-26 10:45 | Outpatient (CLI) | payer MEDICARE | END 2020-07-26 10:46 | disposition home or self-care (01) | LOC: LAB.S 10:45 | PROVIDERS: ATTEND Emergency Medicine | DX: I48.91 Unspecified atrial fibrillation (principal) | CPT/HCPCS: 85610 ==

== ENCOUNTER 2020-08-07 13:04 | Outpatient (CLI) | payer MEDICARE | END 2020-08-07 13:05 | disposition home or self-care (01) | LOC: LAB.S 13:04 | PROVIDERS: ATTEND Emergency Medicine | DX: I48.91 Unspecified atrial fibrillation (principal) | CPT/HCPCS: 85610 ==

== ENCOUNTER 2020-09-02 11:57 | Outpatient (CLI) | payer MEDICARE | END 2020-09-02 11:58 | disposition home or self-care (01) | LOC: LAB.S 11:57 | PROVIDERS: ATTEND Emergency Medicine | DX: I48.91 Unspecified atrial fibrillation (principal) | CPT/HCPCS: 85610 ==

== ENCOUNTER 2020-09-23 02:25 | Emergency (ER) | payer MEDICARE ==
[2020-09-23] MEDS ORDERED: FUROSEMIDE 20 MG TABLET PO STA (02:59)
[2020-09-23] MEDS ORDERED: SILVER NITRATE APPLICATOR TOP STA (02:59)
[2020-09-23 03:13] LABS: BASOPHILS # (AUTO) 0.1 10^3/uL (0.0-0.1); BASOPHILS % (AUTO) 0.7 %; EOSINOPHILS # (AUTO) 0.1 10^3/uL (0.0-0.7); EOSINOPHILS % (AUTO) 1.5 %; HGB - HEMOGLOBIN 14.1 g/dL (12.0-16.0); LYMPHOCYTES # (AUTO) 0.8 10^3/uL (1.5-3.5); LYMPHOCYTES % (AUTO) 11.9 %; MEAN CORPUSCULAR HEMOGLOBIN 31.1 pg (27.0-31.0); MEAN CORPUSCULAR HGB CONC 34.2 g/dL (32.0-36.0); MEAN CORPUSCULAR VOLUME 90.7 fL (81.0-99.0); MEAN PLATELET VOLUME 11.2 fL (7.9-10.8); MONOCYTES # (AUTO) 0.7 10^3/uL (0.0-1.0); MONOCYTES % (AUTO) 10.5 %; NEUTROPHILS % (AUTO) 74.8 %; PLT - PLATELET COUNT 176 10^3/uL (130-450); RED BLOOD COUNT 4.54 10^6/uL (4.20-5.40); RED CELL DISTRIBUTION WIDTH 16.7 % (12.0-15.0); WHITE BLOOD COUNT 6.7 x10^3/uL (4.8-10.8)
[2020-09-23 03:19] LABS: PT - PROTHROMBIN TIME 73.5 secs (9.9-12.6)
[2020-09-23 03:21] LABS: CALCIUM 8.4 mg/dL (8.5-10.3); MAGNESIUM 1.7 mg/dL (1.7-2.8)
[2020-09-23 03:27] LABS: INR 7.5 (0.8-1.2)
--- NOTE | 2020-09-23 03:27 | ED Physician Documentation ---
PD HPI LOWER EXT INJURY - Stated complaint Stated Complaint: L LEG SWOLLEN/BLEEDING - Chief complaint Chief Complaint: Ext Problem - History obtained from History obtained from: Patient - History of Present Illness PD HPI LOW EXT INJURY LOCATION: Left, Lower leg Type of injury: No: Blunt / blow (she is not aware of local injury, but has small varicosity left lower leg that has been bleeding intermittently for few days. Small flap of skin in area. No purulence. Has noted edema in both legs for a week or so. Had taken diuretic for 2 days that she has on hand from prior episodes of edema.) Where injury occurred: Home Timing - onset: How many days ago (3) Timing - details: Intermittant Worsened by: Palpating (she states the area bleeds again if anything rubs on it, or if she has leg hanging down awhile.) Associated symptoms: Swelling (edema of both lower legs that she has intermittently in the past.). 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 Small skin lesions left lower leg (not aware of injury per se) with surface vessel that has been recurrently bleeding few days.) PD PAST MEDICAL HISTORY - Past Medical History Past Medical History: Yes Cardiovascular: Atrial fibrillation, Arrhythmia Respiratory: None Neuro: None Endocrine/Autoimmune: None - Past Surgical History Past Surgical History: Yes General: Cholecystectomy, Splenectomy Cardiovascular: Pacemaker - Present Medications Home Medications: Ambulatory Orders Medication Instructions Recorded Confirmed Lactobacillus Rhamnosus GG 1 each PO DAILY 12/20/12 07/12/18 [Probiotic] Calcium Carb/Vitamin D3/Vit K1 600 mg ORAL DAILY 04/29/14 07/12/18 [Calcium + D Soft Chewable Tab] Multivitamin [Multiple Vitamins] 1 each PO DAILY 02/08/18 07/12/18 Atorvastatin Calcium 20 mg PO DAILY 11/28/18 11/28/18 Carvedilol [Coreg] 6.25 mg PO DAILY 09/23/20 09/23/20 Furosemide [Lasix] 20 mg PO DAILY 09/23/20 09/23/20 Furosemide [Lasix] 20 mg PO DAILY #10 tab 09/23/20 Losartan Potassium 25 mg PO DAILY 09/23/20 09/23/20 Warfarin [Coumadin] 2 mg PO 1400 09/23/20 09/23/20 - Allergies Allergies/Adverse Reactions: Allergies Allergy/AdvReac Type Severity Reaction Status Date / Time No Known Drug Allergies Allergy Verified 04/28/20 13:07 - Social History Does the pt smoke?: No Smoking Status: Never smoker Does the pt drink ETOH?: No Does the pt have substance abuse?: No - Immunizations Immunizations are current?: Yes - POLST Patient has POLST: No PD ED PE NORMAL - Vitals Vital signs reviewed: Yes - General General: Alert and oriented X 3, No acute distress, Well developed/nourished - Neck Neck: Supple, no meningeal sign, No adenopathy - Cardiac Cardiac: No murmur. No: RRR (irregular but rate controlled (about 75 rate on my exam and on ECG). ) - Respiratory Respiratory: No respiratory distress, Clear bilaterally (no crackles heard. ) - Abdomen Abdomen: Soft, Non tender - Derm Derm: Normal color, Warm and dry - Extremities Extremities: No tenderness to palpate, Normal ROM s pain, No calf tenderness / cord, Other (1+ edema in both ankles and lower legs up to the knees. No calf tenderness. No redness. There is small 1/2 cm skin avulsion at left anterior mid lower leg with small surface varicosity that has mild bleeding. No purulence. ) - Neuro Neuro: Alert and oriented X 3, No motor deficit, Normal speech Results - Vitals Vitals: Vital Signs - 24 hr 09/23/20 09/23/20 02:30 03:30 Temperature 36.2 C L 36.3 C L Heart Rate 121 H 70 Respiratory 14 14 Rate Blood Pressure 110/92 H 121/82 H O2 Saturation 90 L 98 Oxygen O2 Source Room air - Labs Labs: Laboratory Tests 09/23/20 09/23/20 09/23/20 03:08 03:08 03:08 WBC 6.7 RBC 4.54 Hgb 14.1 Hct 41.2 MCV 90.7 MCH 31.1 H MCHC 34.2 RDW 16.7 H Plt Count 176 MPV 11.2 H Neut # (Auto) 5.0 Lymph # (Auto) 0.8 L [place] # (Auto) 0.7 Eos # (Auto) 0.1 Baso # (Auto) 0.1 Absolute Nucleated RBC 0.00 Nucleated RBC % 0.0 PT 73.5 H INR 7.5 H* Sodium 136 Potassium 3.9 Chloride 99 L Carbon Dioxide 27 Anion Gap 10.0 BUN 16 Creatinine 1.0 Estimated GFR (MDRD) 53 L Glucose 118 H Calcium 8.4 L Magnesium 1.7 PD MEDICAL DECISION MAKING - ED course Complexity details: reviewed results, re-evaluated patient (The patient with some leg edema bilaterally and states she would use Lasix episodically for this, but was out of Lasix currently (had 1 1/2 doses left). Has recurrently bleeding varicosity left lower leg, that I aplied silver nitrate and dermabond to, then wrap. ), considered differential (no change in meds nor diet, per patient. INR is elevated well above therapeutic. I looked up treatment algorithm online and guideline was to hold for couple days, plus/minus 2.5 mg Vit K if minor bleeding. ), d/w patient Departure - Departure Disposition: Home, Self Care Clinical Impression: Bleeding from varicose veins of left lower extremity, Bilateral leg edema, Supratherapeutic INR Atrial fibrillation Qualifiers: Atrial fibrillation type: unspecified Qualified Code(s): I48.91 - Unspecified atrial fibrillation Condition: Stable Record reviewed to determine appropriate education?: Yes Instructions: ED Veins Varicose Follow-Up: Brian Dumont MD [Physician No Access] - Prescriptions: Furosemide [Lasix] 20 mg PO DAILY #10 tab Comments: Your Coumadin level (INR) is elevated today above the therapeutic range. It is 7.5. Hold your Coumadin for 2 days and have it checked again on . Check with your primary care to see if the dosage should be adjusted after that. For your legs: use evelyn wraps to help with the swelling, and elevate them often. Add furosemide water pill daily for 3-5 days to help reduce the swelling. Also discuss further water pills/diuretics with your primary care provider. The bleeding vein should stop bleeding with the chemical cautery and glue sealant we used. Keep it bandaged for the next couple of days. Discharge Date/Time: 09/23/20 04:20
[2020-09-23 03:31] VITALS: BP 121/82
[2020-09-23] MEDS ORDERED: CHERRY SYRUP 10 ML UDC PO ONE (03:37)
[2020-09-23] MEDS ORDERED: PHYTONADIONE 10 MG/ML AMP PO ONE (03:37)
== END 2020-09-23 04:20 | disposition home or self-care (01) ==
LOC: ED 02:25
DX: I83.892 Varicose veins of left lower extremity with other complications (principal); R60.0 Localized edema; R79.1 Abnormal coagulation profile; I48.91 Unspecified atrial fibrillation; Z79.01 Long term (current) use of anticoagulants; I44.7 Left bundle-branch block, unspecified
CPT/HCPCS: 36415; 80048; 83735; 85025; 85610; 93005; 99283; 99284; A9270

== ENCOUNTER 2020-10-03 14:08 | Outpatient (CLI) | payer MEDICARE | END 2020-10-03 14:09 | disposition home or self-care (01) | LOC: LAB.S 14:08 | PROVIDERS: ATTEND Emergency Medicine | DX: I48.91 Unspecified atrial fibrillation (principal) | CPT/HCPCS: 85610 ==

== ENCOUNTER 2020-10-13 14:17 | Outpatient (CLI) | payer MEDICARE ==
[2020-10-13 20:16] LABS: INR > 10.0 (0.8-1.2); PT - PROTHROMBIN TIME > 120.0 secs (9.9-12.6)
== END 2020-10-13 14:18 | disposition home or self-care (01) ==
LOC: LAB.S 14:17
PROVIDERS: ATTEND Emergency Medicine
DX: I48.91 Unspecified atrial fibrillation (principal)
CPT/HCPCS: 36415; 85610

== ENCOUNTER 2020-10-15 07:37 | Emergency (ER) | payer MEDICARE ==
[2020-10-15] MEDS ORDERED: oxyCODONE 5 MG TABLET PO STA (08:02)
[2020-10-15 08:17] LABS: BASOPHILS % (AUTO) 0.5 %; EOSINOPHILS % (AUTO) 0.6 %; HCT - HEMATOCRIT 41.8 % (37.0-47.0); HGB - HEMOGLOBIN 14.6 g/dL (12.0-16.0); LYMPHOCYTES # (AUTO) 0.7 10^3/uL (1.5-3.5); LYMPHOCYTES % (AUTO) 11.3 %; MEAN CORPUSCULAR HEMOGLOBIN 31.1 pg (27.0-31.0); MEAN CORPUSCULAR HGB CONC 34.9 g/dL (32.0-36.0); MEAN CORPUSCULAR VOLUME 89.1 fL (81.0-99.0); MEAN PLATELET VOLUME 10.2 fL (7.9-10.8); MONOCYTES # (AUTO) 0.5 10^3/uL (0.0-1.0); MONOCYTES % (AUTO) 7.8 %; NEUTROPHILS # (AUTO) 5.2 10^3/uL (1.5-6.6); NEUTROPHILS % (AUTO) 78.7 %; PLT - PLATELET COUNT 196 10^3/uL (130-450); RED BLOOD COUNT 4.69 10^6/uL (4.20-5.40); RED CELL DISTRIBUTION WIDTH 18.2 % (12.0-15.0); WHITE BLOOD COUNT 6.6 x10^3/uL (4.8-10.8)
--- NOTE | 2020-10-15 08:19 | ED Physician Documentation ---
History of Present Illness - Stated complaint Stated Complaint: GLF - BACK PX - Chief complaint Chief Complaint: Ext Problem - History obtained from History obtained from: Patient, Family - History of Present Illness Timing: How many weeks ago (1) Pain level max: 7 Pain level now: 5 - Additonal information Additional information: Is an 85-year-old female who presents to the emergency department after ground- level fall 1 week ago. She states she has had continued low back pain since that time. Worse with movement, better with rest. No loss of bowel or bladder control. Has been taking Tylenol without relief. She also is on warfarin. States her INR was "high". Also complains of bruising to the right wrist, but no pain. Patient does not believe she struck her head. She is unsure of this however. Has not had a headache Review of Systems Constitutional: denies: Fever, Chills Eyes: denies: Loss of vision, Decreased vision Ears: denies: Loss of hearing, Ear pain Nose: denies: Rhinorrhea / runny nose, Congestion Throat: denies: Sore throat Cardiac: denies: Chest pain / pressure, Palpitations Respiratory: denies: Dyspnea, Cough GI: denies: Abdominal Pain, Nausea, Vomiting, Diarrhea : denies: Dysuria Skin: denies: Rash Musculoskeletal: reports: Back pain (low back pain). denies: Neck pain Neurologic: denies: Focal weakness, Numbness, Headache PD PAST MEDICAL HISTORY - Past Medical History Past Medical History: Yes Cardiovascular: Atrial fibrillation, Arrhythmia Respiratory: None Neuro: None Endocrine/Autoimmune: None GI: None WARP HANGER: None : None HEENT: None Psych: None Musculoskeletal: None Derm: None - Past Surgical History Past Surgical History: Yes General: Cholecystectomy, Splenectomy Cardiovascular: Pacemaker - Present Medications Home Medications: Ambulatory Orders Medication Instructions Recorded Confirmed Lactobacillus Rhamnosus GG 1 each PO DAILY 12/20/12 07/12/18 [Probiotic] Calcium Carb/Vitamin D3/Vit K1 600 mg ORAL DAILY 04/29/14 07/12/18 [Calcium + D Soft Chewable Tab] Multivitamin [Multiple Vitamins] 1 each PO DAILY 02/08/18 07/12/18 Atorvastatin Calcium 20 mg PO DAILY 07/12/18 07/12/18 Carvedilol [Coreg] 6.25 mg PO DAILY 09/23/20 09/23/20 Furosemide [Lasix] 20 mg PO DAILY 09/23/20 09/23/20 Furosemide [Lasix] 20 mg PO DAILY #10 tab 09/23/20 Losartan Potassium 25 mg PO DAILY 09/23/20 09/23/20 Warfarin [Coumadin] 2 mg PO 1400 09/23/20 09/23/20 Furosemide [Lasix] 40 mg PO DAILY #7 tablet 10/15/20 Ondansetron Odt [Zofran] 4 mg TL Q6H PRN #10 tablet 10/15/20 oxyCODONE [Roxicodone] 5 mg PO Q4-6H PRN #14 tablet 10/15/20 - Allergies Allergies/Adverse Reactions: Allergies Allergy/AdvReac Type Severity Reaction Status Date / Time No Known Drug Allergies Allergy Verified 10/15/20 07:53 - Social History Does the pt smoke?: No Smoking Status: Never smoker Does the pt drink ETOH?: No Does the pt have substance abuse?: No - Immunizations Immunizations are current?: Yes - POLST Patient has POLST: No PD ED PE NORMAL - Vitals Vital signs reviewed: Yes - General General: Alert and oriented X 3, No acute distress - HEENT HEENT: Atraumatic, PERRL, Moist mucous membranes, Pharynx benign - Neck Neck: Supple, no meningeal sign, No bony TTP - Cardiac Cardiac: RRR, Strong equal pulses - Respiratory Respiratory: No respiratory distress, Clear bilaterally - Abdomen Abdomen: Soft, Non tender, Non distended - Back Back: Other (tenderness to palpation low lumbar approximately L3. No step-off or deformity. Normal evaluation of the cervical and thoracic spines.) - Derm Derm: Warm and dry - Extremities Extremities: Other (Swelling to the dorsum of the right wrist, ulnar aspect. Ecchymosis from the hand to the elbow. Neurovascularly intact.) - Neuro Neuro: Alert and oriented X 3, No motor deficit, No sensory deficit, Other (Normal bilateral lower extremity patellar and ankle jerk reflexes. Normal great toe extension bilaterally. no saddle anesthesia) - Psych Psych: Normal mood, Normal affect Results - Vitals Vitals: Vital Signs - 24 hr 10/15/20 10/15/20 07:48 10:27 Temperature 36.3 C L Heart Rate 76 77 Respiratory 19 14 Rate Blood Pressure 105/85 H 117/82 H O2 Saturation 92 100 Oxygen O2 Source Room air - Labs Labs: Laboratory Tests 10/15/20 10/15/20 10/15/20 08:12 08:12 08:12 WBC 6.6 RBC 4.69 Hgb 14.6 Hct 41.8 MCV 89.1 MCH 31.1 H MCHC 34.9 RDW 18.2 H Plt Count 196 MPV 10.2 Neut # (Auto) 5.2 Lymph # (Auto) 0.7 L Levy # (Auto) 0.5 Eos # (Auto) 0.0 Baso # (Auto) 0.0 Absolute Nucleated RBC 0.00 Nucleated RBC % 0.0 PT > 120.0 H* INR > 10.0 H* Sodium 131 L Potassium 4.6 Chloride 102 Carbon Dioxide 21 Anion Gap 8.0 BUN 24 H Creatinine 1.2 H Estimated GFR (MDRD) 43 L Glucose 124 H Calcium 8.7 Total Bilirubin 1.4 H AST 39 ALT 27 Alkaline Phosphatase 150 H B-Natriuretic Peptide Total Protein 4.9 L Albumin 2.2 L Globulin 2.7 Albumin/Globulin Ratio 0.8 L 10/15/20 08:12 WBC RBC Hgb Hct MCV MCH MCHC RDW Plt Count MPV Neut # (Auto) Lymph # (Auto) Levy # (Auto) Eos # (Auto) Baso # (Auto) Absolute Nucleated RBC Nucleated RBC % PT INR Sodium Potassium Chloride Carbon Dioxide Anion Gap BUN Creatinine Estimated GFR (MDRD) Glucose Calcium Total Bilirubin AST ALT Alkaline Phosphatase B-Natriuretic Peptide 586 H Total Protein Albumin Globulin Albumin/Globulin Ratio - Rads (name of study) ct head Radiology: Prelim report reviewed, EMP read contemporaneously, See rad report (No acute abnormality) ct lumbar spine Radiology: Prelim report reviewed, EMP read contemporaneously, See rad report R wrist xray Radiology: Prelim report reviewed, EMP read contemporaneously, See rad report (Left tissue swelling without acute abnormality) CT tspine Radiology: Prelim report reviewed, EMP read contemporaneously, See rad report PD MEDICAL DECISION MAKING - ED course Complexity details: reviewed results, re-evaluated patient, considered differential, d/w patient ED course: 85-year-old female presents to the emergency department after a fall a week ago. Has bruising to the right forearm and wrist, but no fracture on x-ray. INR greater than 10. Given 5 mg vitamin K orally. We will hold her warfarin until her INR has returned to a normal level. She will have this followed by her doctor. No acute findings on head CT. Does have an age indeterminant T11 compression fracture, 20% height loss. No retropulsion of fragments. Normal neurological exam. She does have swelling in the bilateral lower extremities. Will increase Lasix to 40 mg daily. We will prescribe pain medication as well. Patient counseled regarding signs and symptoms for which I believe and urgent re-evaluation would be necessary. Patient with good understanding of and agreement to plan and is comfortable going home at this time This document was made in part using voice recognition software. While efforts a re made to proofread this document, sound alike and grammatical errors may occur. IMPRESSION: Age-indeterminate height loss at T11, partially visualized. Correlate for point tenderness. Consider a CT of the thoracic spine if there is clinical concern for acute fracture. Extensive degenerative changes. Diffuse anasarca and small pleural effusions and ascites. This presumably reflects volume overload or hypoproteinemia. IMPRESSION: Age indeterminate but suspected acute or subacute compression fracture at T11 with approximately 20% height loss, new from December 2017 exam. Cardiomegaly with bilateral pleural effusions, pulmonary edema, and diffuse anasarca, presumably related to congestive heart failure. Ascending thoracic aortic aneurysm. Departure - Departure Disposition: 01 Home, Self Care Clinical Impression: Supratherapeutic INR Compression fracture of T11 vertebra Qualifiers: Encounter type: initial encounter Qualified Code(s): S22.080A - Wedge compression fracture of T11-T12 vertebra, initial encounter for closed fracture Condition: Good Instructions: ED Fx Comp Vertebral Follow-Up: ROE CHAUDHARI DO [Primary Care Provider] - Within 1 week Prescriptions: Furosemide [Lasix] 40 mg PO DAILY #7 tablet oxyCODONE [Roxicodone] 5 mg PO Q4-6H PRN #14 tablet PRN Reason: back pain Ondansetron Odt [Zofran] 4 mg TL Q6H PRN #10 tablet PRN Reason: Nausea / Vomiting Comments: We will increase your Lasix to 40 mg daily for the next week. We will also prescribe you oxycodone, for breakthrough pain. Use this as needed. You do have a T11 compression fracture, it is unclear if this is new or old, but likely new given your fall. Your INR is also greater than 10. You were given vitamin K today. You need to hold your warfarin until your doctor tells you to restart taking it. You should have your INR checked every 3 days with your doctor until it returns to a normal level. Return for any bleeding. Do not drink alcohol or drive while on narcotic pain medicine. Note that many narcotic pain relievers also contain tylenol/acetaminophen. Please ensure that your total dose of acetaminophen from all sources does not exceed 3 grams (3000mg) per day. You may constipated on this medication, take a stool softener such as "Colace" twice a day while you are on it. Also recommend a naxe-pwu-htcpnvi laxative such as senna or MiraLAX any day that you do not have a bowel movement. If you received narcotic pain medication in the emergency department, do not drive or operate machinery for the next 24 hours.
[2020-10-15 08:33] LABS: PT - PROTHROMBIN TIME > 120.0 secs (9.9-12.6)
[2020-10-15 08:35] LABS: INR > 10.0 (0.8-1.2)
[2020-10-15 08:37] LABS: ALBUMIN 2.2 g/dL (3.2-5.5); ALBUMIN/GLOBULIN RATIO 0.8 (1.0-2.2); BILIRUBIN,TOTAL 1.4 mg/dL (0.2-1.0); CALCIUM 8.7 mg/dL (8.5-10.3); CREATININE 1.2 mg/dL (0.4-1.0); POTASSIUM 4.6 mmol/L (3.5-5.0); TOTAL PROTEIN 4.9 g/dL (6.7-8.2)
--- NOTE | 2020-10-15 08:53 | CT Report ---
PROCEDURE: HEAD WO INDICATIONS: Fall 1 week ago, pt on warfarin TECHNIQUE: Noncontrast 4.5 mm thick angled axial sections acquired from the foramen magnum to the vertex. For r adiation dose reduction, the following was used: automated exposure control, adjustment of mA and/or kV according to patient size. COMPARISON: None. FINDINGS: Image quality: Excellent. CSF spaces: Basal cisterns are patent. No extra-axial fluid collections. Ventricles are normal in size and shape. Brain: No midline shift. No intracranial masses or hemorrhage. Rosas-white matter interface is norm al. Skull and face: Calvarium and visualized facial bones are intact, without suspicious lesions. Sinuses: Visualized sinuses and mastoids are clear. IMPRESSION: No acute intracranial finding. Reviewed by: Maximiliano Avila MD on 10/15/2020 8:51 AM PST Approved by: Maximiliano Avila MD on 10/15/2020 8:51 AM PST Station ID: [id number]
--- NOTE | 2020-10-15 09:00 | XRAY Report ---
PROCEDURE: Wrist 4 View RT INDICATIONS: fall 1 week ago, wrist pain TECHNIQUE: 4 views of the wrist were acquired. COMPARISON: None. FINDINGS: Bones: No fractures or dislocations. No suspicious bony lesions. Scattered subchondral sclerosis a nd spurring. First CMC and triscaphe joint degeneration. Chronic incidental chondrocalcinosis. Additional soft tissue calcifications in the periarticular regions of the second and fifth MCP joints . Severe soft tissue swelling of the ulnar aspect of the wrist. IMPRESSION: Severe ulnar sided soft tissue swelling. No fracture. If the patient's pain or other symptoms persist , consider further evaluation of the soft tissues with MRI. Degenerative changes as above Reviewed by: Justo Hall MD on 10/15/2020 8:59 AM PST Approved by: Justo Hall MD on 10/15/2020 8:59 AM PST Station ID: [id number]
[2020-10-15] MEDS ORDERED: PHYTONADIONE 10 MG/ML AMP PO ONE (09:08)
[2020-10-15] MEDS ORDERED: CHERRY SYRUP 10 ML UDC PO ONE (09:08)
[2020-10-15] MEDS ORDERED: FUROSEMIDE 20 MG TABLET PO STA (09:15)
--- NOTE | 2020-10-15 09:20 | CT Report ---
PROCEDURE: LUMBAR SPINE WO INDICATIONS: fall 1 week ago, back pain TECHNIQUE: Noncontrast 3 mm thick sections acquired from the T12 level to the sacrum. Sagittal and coronal refo rmats were constructed. For radiation dose reduction, the following was used: automated exposure co ntrol, adjustment of mA and/or kV according to patient size. COMPARISON: 01/12/2018. FINDINGS: Image quality: Excellent. Bones: Age-indeterminate height loss at T11, partially visualized. Remaining vertebral body heights maintained. Normal alignment. Diffuse overall moderate degenerative changes. Soft tissues: Limited evaluation by lack of IV contrast. Diffuse anasarca. Small bilateral pleural e ffusions. Small volume ascites. Aortic atherosclerosis. Cholecystectomy. IMPRESSION: Age-indeterminate height loss at T11, partially visualized. Correlate for point tenderness. Consider a CT of the thoracic spine if there is clinical concern for acute fracture. Extensive degenerative changes. Diffuse anasarca and small pleural effusions and ascites. This presumably reflects volume overload or hypoproteinemia. Reviewed by: Maximiliano Avila MD on 10/15/2020 9:19 AM [facility] Approved by: Maximiliano Avila MD on 10/15/2020 9:19 AM PST Station ID: [id number]
[2020-10-15] MEDS ORDERED: FUROSEMIDE 40 MG TABLET PO STA (09:22)
[2020-10-15 10:27] VITALS: BP 117/82
--- NOTE | 2020-10-15 10:28 | CT Report ---
PROCEDURE: THORACIC SPINE WO INDICATIONS: fall, back pain, possible T11 fracture TECHNIQUE: Noncontrast 3 mm thick sections acquired through the region of interest in the thoracic spine. Sagit umm and coronal reformats were then constructed. For radiation dose reduction, the following was used : automated exposure control, adjustment of mA and/or kV according to patient size. COMPARISON: None. FINDINGS: There is approximately 20% height loss of the T11 vertebral body anteriorly and centrally, new from 2017 examination. There is a subtle linear band of increased density traversing the superior third of the vertebral body and anterior-posterior direction, which presumably represents increased densit y of trabeculae as a function of fracture, either acute or subacute. There is no charbel cortical fract ure or buckling identified. Craniovertebral body heights are maintained and the thoracic spine. Alignment is normal other than ex aggerated kyphosis. Decreased density of the visualized bones consistent with demineralization and pr esumably reflective of osteoporosis or osteopenia. No suspicious lytic or blastic osseous lesion. Mil d degenerative changes throughout the thoracic spine without osseous spinal canal or neural foraminal stenosis. Cardiomegaly with partially visualized pacemaker leads. Bilateral small pleural effusions with overly ing atelectasis. Ascending thoracic aortic aneurysm with ectasia of the aortic arch. Extensive athero sclerosis of the thoracic aorta extending into the arch branches. IMPRESSION: Age indeterminate but suspected acute or subacute compression fracture at T11 with approximately 20% height loss, new from December 2017 exam. Cardiomegaly with bilateral pleural effusions, pulmonary edema, and diffuse anasarca, presumably rela hernan to congestive heart failure. Ascending thoracic aortic aneurysm. Reviewed by: Maximiliano Avila MD on 10/15/2020 10:27 AM [facility] Approved by: Maximiliano Avila MD on 10/15/2020 10:27 AM PST Station ID: [id number]
[2020-10-15] MEDS ORDERED: ONDANSETRON ODT 4 MG TABLET TL STA (10:42)
== END 2020-10-15 11:14 | disposition home or self-care (01) ==
LOC: ED 07:37
DX: M48.54XA Collapsed vertebra, not elsewhere classified, thoracic region, initial encounter for fracture (principal); W19.XXXA Unspecified fall, initial encounter; R79.1 Abnormal coagulation profile; I48.91 Unspecified atrial fibrillation; Z79.01 Long term (current) use of anticoagulants; M79.89 Other specified soft tissue disorders; I51.7 Cardiomegaly; J90 Pleural effusion, not elsewhere classified; J81.1 Chronic pulmonary edema
CPT/HCPCS: 36415; 70450; 72128; 72131; 73110; 80053; 83880; 85025; 85610; 99284; A9270; Q0162

== ENCOUNTER 2020-10-15 16:02 | Outpatient (CLI) | payer MEDICARE | END 2020-10-15 16:03 | disposition short-term general hospital (02) | LOC: EMS 16:02 | DX: R53.1 Weakness (principal); M54.5 Low back pain | CPT/HCPCS: A0425; A0429 ==